=== PATIENT | female | born 1980 | race Caucasian/White ===

== ENCOUNTER 2018-01-09 16:06 | Emergency (ER) | payer BC, OTHER ==
[~2018-01-09] VITALS: Ht 172.7 cm; Wt 101.9 kg
[~2018-01-09 16:06] MED LIST: CETICHW4 PO; MULT-506 PO
[2018-01-09 16:23] VITALS: TEMP 37.1; Ht 172.7 cm; Wt 101.9 kg
--- NOTE | 2018-01-09 17:47 | EMERGENCY ROOM VISIT NOTE ---
History Report prepared by Kwesi: Wilver Monaco Under the Supervision of: Dr. Gigi Bonilla M.D. First contact with patient: 17:33 Chief Complaint: NECK PAIN Stated Complaint: NECK PAIN,BILATERAL ARM WEAKNESS/BURNING History of Present Illness The patient is a 37 year old female who presents to the Emergency Room with complaints of worsening neck pain over the past 2 months. She states that for 2 years, she has been dealing with weakness in both her arms. The patient notes that it usually is most noticeable when she is doing something overhead or lifting something heavy. The patient states that in the past 2 months, she has started to have burning in both her shoulders, and a bit of tingling in her hands. She adds that for the past couple months, her neck has been burning and it is stiff. She rates her neck pain without movement as a 4 or 5 out of 10 in severity, but when she turns her head, she gets an 8 out of 10 pain in the back of her neck. The patient says that she saw her family doctor 2 weeks ago, and was referred to neurology, but neurology cannot see her for another few weeks. The patient notes that she "can barely make it these days" due to the weakness in her arms. 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 The patient states that her symptoms are worse in the left arm. She notes that her legs do not feel noticeably weak currently. She denies any fevers, recent falls or trauma, or any history of head or neck injuries. The patient states that she has been taking Ibuprofen and Tylenol for pain. She notes no history of diabetes, kidney, spleen, or liver trouble. Source of History: patient Onset: Past 2 months Position: neck Symptom Intensity: 8/10 at worst Quality: other (pain) Modifying Factors (Worsening): movement Associated Symptoms: + weakness (arms especially), No fevers Note: Associated symptoms: Tingling in her hands. Burning in bilateral shoulders. Review of Systems See HPI for pertinent positives & negatives. A total of 10 systems reviewed and were otherwise negative. Past Medical & Surgical Medical Problems: (1) Asthma (2) Endometriosis Family History Cancer Diabetes mellitus Hypertension Kidney disease Social History Smoking Status: Never Smoker Alcohol Use: none Marital Status: Occupation Status: employed Current/Historical Medications Scheduled Acetaminophen (Tylenol), 1,000 MG PO BID Albuterol Hfa (Ventolin Hfa), 2-4 PUFFS INH PRN Ibuprofen (Motrin), 400 MG PO TID Mometasone Furoate-Formoterol (Dulera 100/5 Mcg), 2 PUFFS INH BID Multiple Vitamin (Multivitamin), 1 TAB PO DAILY Allergies Coded Allergies: Penicillins (Unverified Allergy, Intermediate, RASH, 01/09/18) Sulfamethoxazole w/Trimethoprim (Unverified Allergy, Intermediate, HIVES, 01/09/18) Physical Exam Vital Signs Date Time Temp Pulse Resp B/P (MAP) Pulse Ox O2 Delivery O2 Flow Rate FiO2 01/09/18 19:18 69 16 107/63 96 Room Air 01/09/18 18:14 92 20 126/71 97 Room Air 01/09/18 16:23 37.1 106 16 161/91 98 Room Air Physical Exam GENERAL: Patient is in no acute distress. HEENT: No acute trauma, normocephalic atraumatic, mucous membranes moist, no nasal congestion, no scleral icterus. NECK: No stridor, no adenopathy, no meningismus, trachea is midline. LUNGS: Clear to auscultation bilaterally, no wheeze, no rhonchi, breath sounds equal. HEART: Without murmurs gallops or rubs, regular rate and rhythm. ABDOMEN: Soft, nontender, bowel sounds positive, no hernias, no peritonitis. EXTREMITIES: No cyanosis or edema, full range of motion of all the joints without pain or difficulty, no signs for acute trauma. Strong radial pulses bilaterally. NEUROLOGIC: Oriented x 3, no acute motor or sensory deficits, no focal weakness. 5/5 strength in both upper extremities. No cerebellar dysfunction or pronator drift. SKIN: No rash, no jaundice, no diaphoresis. Medical Decision & Procedures Laboratory Results 01/09/18 17:59 01/09/18 17:59 Test 01/09/18 17:59 Red Blood Count 4.60 M/uL (4.2-5.4) Mean Corpuscular Volume 89.8 fL (80-100) Mean Corpuscular Hemoglobin 30.7 pg (25-34) Mean Corpuscular Hemoglobin Concent 34.1 g/dl (32-36) RDW Standard Deviation 41.1 fL (36.4-46.3) RDW Coefficient of Variation 12.7 % (11.5-14.5) Mean Platelet Volume 9.5 fL (7.4-10.4) Anion Gap 4.0 mmol/L (3-11) Est Creatinine Clear Calc Drug Dose 117.9 ml/min Estimated GFR () 107.6 Estimated GFR (Non- 92.9 BUN/Creatinine Ratio 18.8 (10-20) Calcium Level 9.4 mg/dl (8.5-10.1) Magnesium Level 2.2 mg/dl (1.8-2.4) Thyroid Stimulating Hormone (TSH) 2.620 uIu/ml (0.300-4.500) Laboratory results reviewed by me. Medications Administered Medications (Trade) Dose Ordered Sig/Sabiha Route Start Time Stop Time Status Last Admin Dose Admin Acetaminophen (Tylenol Tab) 1,000 mg NOW STAT PO 01/09/18 18:02 01/09/18 18:03 DC 01/09/18 18:14 1,000 MG ED Course 1735: The patient was evaluated in room C9. A complete history and physical exam was performed. 1802: Tylenol Tab 1000 mg PO. 2000: I reevaluated and updated the patient. She is resting and doing fine. 2030: The patient was signed out to Dr. Musa at change of shift. Medical Decision Differential diagnosis includes but is not limited to electrolyte imbalance, thyroid disorder, renal failure, spinal stenosis, cervical disc disease or arthritis, nerve impingement. There is no leukocytosis or concerning anemia. No significant electrolyte abnormality or kidney failure. The patient appears to be in a euthyroid state. On exam, the patient was not febrile or toxic. There was no evidence for upper extremity weakness. Circulation in both upper extremities was normal. The patient has been having escalating symptoms now for some time. I do think disc disease in the cervical spine or spinal stenosis is possible. An MRI was felt warranted. This was ordered and the results are pending. Patient was given oral Tylenol for pain. She was written for a dose of Ativan to be given IV if needed to tolerate the MRI. At this point, the case is being assumed by the oncoming ER doctor, please see his notes for the results of the MRI and the final disposition and plan. Medication Reconcilliation Current Medication List: was personally reviewed by me Blood Pressure Screening Patient's blood pressure: Normal blood pressure Impression Primary Impression: Neck pain Additional Impression: Bilateral arm weakness Scribe Attestation The scribe's documentation has been prepared under my direction and personally reviewed by me in its entirety. I confirm that the note above accurately reflects all work, treatment, procedures, and medical decision making performed by me. Departure Information Dispostion Still a Patient (sign out) Referrals Pedro Day PA-C (PCP) Patient Instructions My [facility] Problem Qualifiers
[2018-01-09] MEDS ORDERED: MOME100A INH (17:54)
[2018-01-09] MEDS ORDERED: MULTTAB58 PO (17:54)
[2018-01-09] MEDS ORDERED: IBUP-1459 PO (17:54)
[2018-01-09] MEDS ORDERED: VNTHFA/IN INH (17:54)
[2018-01-09] MEDS ORDERED: ACET-1256 PO (17:54)
[2018-01-09] MEDS ORDERED: ACETAMINOPHEN 500 MG TAB PO STA (18:02)
[2018-01-09 18:19] LABS: HEMATOCRIT 41.3 % (37-47); HEMOGLOBIN 14.1 g/dL (12.0-16.0); MEAN CELL VOLUME 89.8 fL (80-100); MEAN CORPUSCULAR HEMOGLOBIN 30.7 pg (25-34); MEAN CORPUSCULAR HGB CONC 34.1 g/dl (32-36); MEAN PLATELET VOLUME 9.5 fL (7.4-10.4); PLATELET COUNT 302 K/uL (130-400); RED CELL DISTRIBUTION WIDTH CV 12.7 % (11.5-14.5); RED CELL DISTRIBUTION WIDTH SD 41.1 fL (36.4-46.3); WHITE BLOOD COUNT 10.37 K/uL (4.8-10.8)
[2018-01-09 18:34] LABS: CALCIUM 9.4 mg/dl (8.5-10.1); CREATININE 0.8 mg/dl (0.60-1.20); POTASSIUM 3.6 mmol/L (3.5-5.1)
[2018-01-09] MEDS ORDERED: LORAZEPAM 2 MG/ML 1 ML VIAL IV STA (19:42)
--- NOTE | 2018-01-09 21:23 | EMERGENCY ROOM VISIT NOTE ---
ED Visit Note First contact with patient: 21:23 The patient was taken in signout from Dr. Bonilla at the change of shift. Please see that note for details. The patient was pending MRI results. The patient's MRI results revealed minor degenerative changes. She was informed. The patient on any prescription analgesia. I did discuss the use of a small burst of steroids. The patient felt comfortable with this. She has a pending follow- up appointment. If she worsens in any way she will be back.
[2018-01-09] MEDS ORDERED: GADAVIST IV PRN (21:45)
--- NOTE | 2018-01-09 22:00 | DIAGNOSTIC IMAGING REPORT ---
CERVICAL SPINE COMBO CLINICAL HISTORY: 37 years-old Female presenting with arms numb and weak, neck pain, bilateral arm numbness and weakness with symptoms on and off for 2 months, no known injury. TECHNIQUE: Multisequence, multiplanar MR imaging of the cervical spine was performed before and after the administration of intravenous contrast. IV contrast: 10 mL of Gadavist. COMPARISON: None. FINDINGS: Localizer images: Unremarkable. Slight straightening of normal cervical lordosis likely positional. Fat-containing lesion in C7 consistent with benign hemangioma. Vertebral bodies otherwise maintain normal height, alignment, and bone marrow signal intensity. Intervertebral discs preserved. Minimal degenerative changes evident with small disc osteophyte complexes from C3-4 through C6-7. However, these do not demonstrate significant spinal canal or neural foraminal narrowing. Cervical spinal cord maintains normal morphology and signal intensity throughout. No abnormal enhancement on postcontrast imaging. Craniocervical junction normal. No epidural collection. Paraspinal soft tissues within normal limits. IMPRESSION: Mild degenerative changes in the cervical spine with small disc osteophyte complexes. However, these do not result in significant spinal canal or neural foraminal narrowing. Normal cervical spinal cord. No abnormal enhancement. Electronically signed by: Gordon Friend M.D. 01/09/2018 9:58 PM Dictated Date/Time: 01/09/2018 9:54 PM
[2018-01-09] MEDS ORDERED: PRED50TA PO (23:12)
[2018-01-09 23:28] VITALS: BP 109/65; PULSE 84; O2SAT 96
== END 2018-01-09 23:28 | disposition home or self-care (01) ==
LOC: C.EDB 16:08 → C.EDC 23:28
DX: M54.2 Cervicalgia (principal); R53.1 Weakness; J45.909 Unspecified asthma, uncomplicated